=== PATIENT | female | born 1990 | race Caucasian/White ===

== ENCOUNTER 2022-11-02 11:44 | Emergency (ER) | payer MEDICAID, SELFPAY ==
--- NOTE | 2022-11-02 12:27 | ECG_ITS ---
Test Reason : palpitation Blood Pressure : / mmHG Vent. Rate : 068 BPM Atrial Rate : 068 BPM P-R Int : 160 ms QRS Dur : 088 ms QT Int : 400 ms P-R-T Axes : 049 070 033 degrees QTc Int : 425 ms Normal sinus rhythm Normal ECG No previous ECGs available Referred By: Shaq Rodriguez Electronically Signed By:Jake Mcgee
[2022-11-02 12:28] VITALS: BP 127/79; PULSE 74; RESP 16; TEMP 36.6; O2SAT 99; BMI 31.1
--- NOTE | 2022-11-02 12:33 | ED.GENADULT ---
HPI - General Adult General Chief complaint: Arrhythmia/Palpitations <ISAURA Reed - Last Filed: 11/08/22 11:25> Stated complaint: Heart palpitations/SOB <ISAURA Reed - Last Filed: 11/08/22 11:25> Time Seen by Provider: 11/02/22 14:52 <ISAURA Reed - Last Filed: 11/08/22 11:25> Source: patient <ISAURA Dahl - Last Filed: 11/02/22 17:59> Mode of arrival: ambulatory <ISAURA Dahl - Last Filed: 11/02/22 17:59> Limitations: no limitations <ISAURA Dahl Last Filed: 11/02/22 17:59> History of Present Illness HPI narrative: 32 yo female who is currently 7 weeks who presents to the ER for evaluations of 2-3 days of intermittent palpitations associated with SOB, anxiety and dizziness. She reports a history of anxiety and palpitations in the past but not recurrent episodes like it has been. She reports the episodes have been lasting 10-30 minutes, associated with pounding in the chest and throat. She also reports tingling of the hands intermittently. She feels SOB generally lately, not more with exertion or rest. She denies cough, difficulty breathing or chest pains. No leg pain, swelling or redness. She saw her PCP recently and had a normal EKG. Weaned herself off of caffiene. She denies any abdominal pain or vaginal bleeding. She was previously on prozac for anxiety/depression but she reports no improvement with it. <ISAURA Dahl - Last Filed: 11/02/22 17:59> MD complaint: palpitations, SOB, dizziness <ISAURA Dahl - Last Filed: 11/02/22 17:59> Onset (ago): day(s) <ISAURA Dahl - Last Filed: 11/02/22 17:59> Location: chest <ISAURA Dahl Last Filed: 11/02/22 17:59> Radiation: neck <ISAURA Dahl Last Filed: 11/02/22 17:59> Severity: moderate <ISAURA Dahl Last Filed: 11/02/22 17:59> Pain Consistency: intermittent <ISAURA Dahl - Last Filed: 11/02/22 17:59> Relieving factors: none <ISAURA Dahl - Last Filed: 11/02/22 17:59> Exacerbating factors: none <ISAURA Dahl - Last Filed: 11/02/22 17:59> Associated symptoms: shortness of breath <ISAURA Dahl - Last Filed: 11/02/22 17:59> Treatments prior to arrival: none <ISAURA Dahl - Last Filed: 11/02/22 17:59> Related Data Allergies/adverse reactions: Allergies Allergy/AdvReac Type Severity Reaction Status Date / Time No Known Allergies Allergy Verified 11/02/22 11:52 <ISAURA Reed - Last Filed: 11/08/22 11:25> Review of Systems Review of Systems: Yes all other systems are reviewed and are negative <ISAURA Dahl - Last Filed: 11/02/22 17:59> [facility] Social History Social History: Social History Advance Directives: No Advance Directives Information Provided: No <ISAURA Reed - Last Filed: 11/08/22 11:25> Physical Exam ED Vital Signs: Vital Signs - 24 hr 11/02/22 12:28 11/02/22 15:48 Temperature 98 F 98.2 F Pulse Rate 74 72 Respiratory Rate 16 18 Blood Pressure 127/79 124/63 Pulse Oximetry 99 98 Oxygen Delivery Method Room Air Room Air BMI result Body Mass Index 31.1 <ISAURA Reed - Last Filed: 11/08/22 11:25> Vital Signs - 24 hr 11/02/22 12:28 11/02/22 15:48 Temperature 98 F 98.2 F Pulse Rate 74 72 Respiratory Rate 16 18 Blood Pressure 127/79 124/63 Pulse Oximetry 99 98 Oxygen Delivery Method Room Air Room Air BMI result Body Mass Index 31.1 <ISAURA Dahl - Last Filed: 11/02/22 17:59> Appearance: Alert. Oriented X3. No acute distress. Eyes: Pupils equal, round and reactive to light. ENT: Pharynx normal. Neck: Normal inspection. Neck supple. CVS: Normal heart rate and rhythm. Pulses normal. Respiratory: No respiratory distress. Breath sounds normal. Abdomen: Soft and nontender. +BS x4 Skin: Skin warm and dry. Normal skin color. Normal skin turgor. No rashes. Extremities: No lower extremity edema. No calf swelling, redness or tenderness. Neuro: Oriented X 3. No motor deficit. No sensory deficit. <ISAURA Dahl Last Filed: 11/02/22 17:59> Course Course Course Narrative: RME: 32 yold female presents to the ED for heart palpitaions described as pounding with moments of shortness of breath. patient is 7 weeks pregant. patient denies any lower extremity swelling or calf pain, recent long travel, or recent surgery. Lungs and heart sound clear. lower extremities negative for swelling, pitting edema or calf pain. Vital signs stable. Labs, EKG, and chest xray ordered. patient denies vaginal bleeding or abdominal pain. 1:27pm patient refuse chest xray <ISAURA Reed - Last Filed: 11/08/22 11:25> Reevaluation(s) Reevaluation #1: Troponin negative, D-dimer negative, lab work unremarkable. At this time patient is stable for discharge home with plan to follow-up with her PCP and OBGYN. Counseled on management of anxiety and panic attacks. She is going to try to get a therapist. Stable for DC home. <ISAURA Dahl Last Filed: 11/02/22 17:59> Medical Decision Making Differential Diagnosis Differential Diagnoses: The differential diagnosis associated with the presentation includes <ISAURA Dahl - Last Filed: 11/02/22 17:59> Anxiety, panic, pneumonia, viral illness, thyroid disease, electrolyte abnormality, caffeine withdrawal, PE, ACS, pericardial effusion, pericarditis <ISAURA Dahl Last Filed: 11/02/22 17:59> Lab Data MDM Lab Attestation statement: I reviewed the patient's lab results. <ISAURA Dahl Last Filed: 11/02/22 17:59> Lab work unremarkable, troponin negative, D-dimer negative, TSH normal <ISAURA Dahl Last Filed: 11/02/22 17:59> Result Diagrams: 11/02/22 12:49 <ISAURA Reed - Last Filed: 11/08/22 11:25> Labs: Lab Results 11/02/22 11/02/22 11/02/22 Range/Units 12:49 12:49 12:49 WBC 7.9 (4.8-10.8) X10*3/uL RBC 4.61 (4.20-5.50) X10*6/uL Hgb 12.8 (12.0-16.0) g/dl Hct 38.7 (37.0-47.0) % MCV 83.9 (80.0-98.0) fL MCH 27.8 (27.0-33.0) pg MCHC 33.1 (31.0-35.0) g/dl RDW 12.0 (11.0-16.0) % Plt Count 242 (160-400) X10*3/uL MPV 10.1 (9.4-12.3) fL Immature Gran % (Auto) 0.5 H (0.0-0.4) % Neut % (Auto) 73.9 H (45-73) % Lymph % (Auto) 18.1 L (20-40) % [place] % (Auto) 6.4 (2-11) % Eos % (Auto) 0.8 (0-4) % Baso % (Auto) 0.3 (0-2) % Lymph # (Auto) 1.4 (1.2-4.9) X10*3/uL [place] # (Auto) 0.5 (0.1-1.2) X10*3/uL Eos # (Auto) 0.1 (0.0-0.4) X10*3/uL Baso # (Auto) 0.0 (0.0-0.2) X10*3/uL Abs Immat Gran (auto) 0.04 H (0.00-0.03) X10*3/uL Absolute Neuts (auto) 5.8 (2.0-8.3) x10*3/uL Absolute Nucleated RBC 0.000 (0.0-0.012) X10*3/uL Nucleated RBC % (auto) 0.0 (0.0-0.2) /100WBC PT 11.0 (10.0-13.1) SEC INR 1.0 (0.9-1.1) APTT 27.8 (26.0-36.4) SEC D-Dimer High Sensitivty < 150 NG/ML Magnesium 1.9 (1.6-2.6) mg/dL Troponin I High Sens (<3.5-17.0) ng/L B-Natriuretic Peptide (<100) pg/mL TSH 0.89 (0.32-4.0) uIU/mL Beta HCG, Quant mIU/mL Influenza Type A (PCR) (Negative) Influenza Type B (PCR) (Negative) RSV RNA Qual (PCR) (Negative) SARS-CoV-2 RNA (RT-PCR) (Negative) 11/02/22 11/02/22 11/02/22 Range/Units 12:49 12:49 12:49 WBC (4.8-10.8) X10*3/uL RBC (4.20-5.50) X10*6/uL Hgb (12.0-16.0) g/dl Hct (37.0-47.0) % MCV (80.0-98.0) fL MCH (27.0-33.0) pg MCHC (31.0-35.0) g/dl RDW (11.0-16.0) % Plt Count (160-400) X10*3/uL MPV (9.4-12.3) fL Immature Gran % (Auto) (0.0-0.4) % Neut % (Auto) (45-73) % Lymph % (Auto) (20-40) % [place] % (Auto) (2-11) % Eos % (Auto) (0-4) % Baso % (Auto) (0-2) % Lymph # (Auto) (1.2-4.9) X10*3/uL [place] # (Auto) (0.1-1.2) X10*3/uL Eos # (Auto) (0.0-0.4) X10*3/uL Baso # (Auto) (0.0-0.2) X10*3/uL Abs Immat Gran (auto) (0.00-0.03) X10*3/uL Absolute Neuts (auto) (2.0-8.3) x10*3/uL Absolute Nucleated RBC (0.0-0.012) X10*3/uL Nucleated RBC % (auto) (0.0-0.2) /100WBC PT (10.0-13.1) SEC INR (0.9-1.1) APTT (26.0-36.4) SEC D-Dimer High Sensitivty NG/ML Magnesium (1.6-2.6) mg/dL Troponin I High Sens < 3.5 (<3.5-17.0) ng/L B-Natriuretic Peptide 38 (<100) pg/mL TSH (0.32-4.0) uIU/mL Beta HCG, Quant 53713 mIU/mL Influenza Type A (PCR) (Negative) Influenza Type B (PCR) (Negative) RSV RNA Qual (PCR) (Negative) SARS-CoV-2 RNA (RT-PCR) (Negative) 11/02/22 Range/Units 12:49 WBC (4.8-10.8) X10*3/uL RBC (4.20-5.50) X10*6/uL Hgb (12.0-16.0) g/dl Hct (37.0-47.0) % MCV (80.0-98.0) fL MCH (27.0-33.0) pg MCHC (31.0-35.0) g/dl RDW (11.0-16.0) % Plt Count (160-400) X10*3/uL MPV (9.4-12.3) fL Immature Gran % (Auto) (0.0-0.4) % Neut % (Auto) (45-73) % Lymph % (Auto) (20-40) % [place] % (Auto) (2-11) % Eos % (Auto) (0-4) % Baso % (Auto) (0-2) % Lymph # (Auto) (1.2-4.9) X10*3/uL [place] # (Auto) (0.1-1.2) X10*3/uL Eos # (Auto) (0.0-0.4) X10*3/uL Baso # (Auto) (0.0-0.2) X10*3/uL Abs Immat Gran (auto) (0.00-0.03) X10*3/uL Absolute Neuts (auto) (2.0-8.3) x10*3/uL Absolute Nucleated RBC (0.0-0.012) X10*3/uL Nucleated RBC % (auto) (0.0-0.2) /100WBC PT (10.0-13.1) SEC INR (0.9-1.1) APTT (26.0-36.4) SEC D-Dimer High Sensitivty NG/ML Magnesium (1.6-2.6) mg/dL Troponin I High Sens (<3.5-17.0) ng/L B-Natriuretic Peptide (<100) pg/mL TSH (0.32-4.0) uIU/mL Beta HCG, Quant mIU/mL Influenza Type A (PCR) NEGATIVE (Negative) Influenza Type B (PCR) NEGATIVE (Negative) RSV RNA Qual (PCR) NEGATIVE (Negative) SARS-CoV-2 RNA (RT-PCR) NEGATIVE (Negative) <ISAURA Reed - Last Filed: 11/08/22 11:25> Lab Results 11/02/22 11/02/22 11/02/22 Range/Units 12:49 12:49 12:49 WBC 7.9 (4.8-10.8) X10*3/uL RBC 4.61 (4.20-5.50) X10*6/uL Hgb 12.8 (12.0-16.0) g/dl Hct 38.7 (37.0-47.0) % MCV 83.9 (80.0-98.0) fL MCH 27.8 (27.0-33.0) pg MCHC 33.1 (31.0-35.0) g/dl RDW 12.0 (11.0-16.0) % Plt Count 242 (160-400) X10*3/uL MPV 10.1 (9.4-12.3) fL Immature Gran % (Auto) 0.5 H (0.0-0.4) % Neut % (Auto) 73.9 H (45-73) % Lymph % (Auto) 18.1 L (20-40) % [place] % (Auto) 6.4 (2-11) % Eos % (Auto) 0.8 (0-4) % Baso % (Auto) 0.3 (0-2) % Lymph # (Auto) 1.4 (1.2-4.9) X10*3/uL [place] # (Auto) 0.5 (0.1-1.2) X10*3/uL Eos # (Auto) 0.1 (0.0-0.4) X10*3/uL Baso # (Auto) 0.0 (0.0-0.2) X10*3/uL Abs Immat Gran (auto) 0.04 H (0.00-0.03) X10*3/uL Absolute Neuts (auto) 5.8 (2.0-8.3) x10*3/uL Absolute Nucleated RBC 0.000 (0.0-0.012) X10*3/uL Nucleated RBC % (auto) 0.0 (0.0-0.2) /100WBC PT 11.0 (10.0-13.1) SEC INR 1.0 (0.9-1.1) APTT 27.8 (26.0-36.4) SEC D-Dimer High Sensitivty < 150 NG/ML Magnesium 1.9 (1.6-2.6) mg/dL Troponin I High Sens (<3.5-17.0) ng/L B-Natriuretic Peptide (<100) pg/mL TSH 0.89 (0.32-4.0) uIU/mL Beta HCG, Quant mIU/mL Influenza Type A (PCR) (Negative) Influenza Type B (PCR) (Negative) RSV RNA Qual (PCR) (Negative) SARS-CoV-2 RNA (RT-PCR) (Negative) 11/02/22 11/02/22 11/02/22 Range/Units 12:49 12:49 12:49 WBC (4.8-10.8) X10*3/uL RBC (4.20-5.50) X10*6/uL Hgb (12.0-16.0) g/dl Hct (37.0-47.0) % MCV (80.0-98.0) fL MCH (27.0-33.0) pg MCHC (31.0-35.0) g/dl RDW (11.0-16.0) % Plt Count (160-400) X10*3/uL MPV (9.4-12.3) fL Immature Gran % (Auto) (0.0-0.4) % Neut % (Auto) (45-73) % Lymph % (Auto) (20-40) % [place] % (Auto) (2-11) % Eos % (Auto) (0-4) % Baso % (Auto) (0-2) % Lymph # (Auto) (1.2-4.9) X10*3/uL [place] # (Auto) (0.1-1.2) X10*3/uL Eos # (Auto) (0.0-0.4) X10*3/uL Baso # (Auto) (0.0-0.2) X10*3/uL Abs Immat Gran (auto) (0.00-0.03) X10*3/uL Absolute Neuts (auto) (2.0-8.3) x10*3/uL Absolute Nucleated RBC (0.0-0.012) X10*3/uL Nucleated RBC % (auto) (0.0-0.2) /100WBC PT (10.0-13.1) SEC INR (0.9-1.1) APTT (26.0-36.4) SEC D-Dimer High Sensitivty NG/ML Magnesium (1.6-2.6) mg/dL Troponin I High Sens < 3.5 (<3.5-17.0) ng/L B-Natriuretic Peptide 38 (<100) pg/mL TSH (0.32-4.0) uIU/mL Beta HCG, Quant 55924 mIU/mL Influenza Type A (PCR) (Negative) Influenza Type B (PCR) (Negative) RSV RNA Qual (PCR) (Negative) SARS-CoV-2 RNA (RT-PCR) (Negative) 11/02/22 Range/Units 12:49 WBC (4.8-10.8) X10*3/uL RBC (4.20-5.50) X10*6/uL Hgb (12.0-16.0) g/dl Hct (37.0-47.0) % MCV (80.0-98.0) fL MCH (27.0-33.0) pg MCHC (31.0-35.0) g/dl RDW (11.0-16.0) % Plt Count (160-400) X10*3/uL MPV (9.4-12.3) fL Immature Gran % (Auto) (0.0-0.4) % Neut % (Auto) (45-73) % Lymph % (Auto) (20-40) % [place] % (Auto) (2-11) % Eos % (Auto) (0-4) % Baso % (Auto) (0-2) % Lymph # (Auto) (1.2-4.9) X10*3/uL [place] # (Auto) (0.1-1.2) X10*3/uL Eos # (Auto) (0.0-0.4) X10*3/uL Baso # (Auto) (0.0-0.2) X10*3/uL Abs Immat Gran (auto) (0.00-0.03) X10*3/uL Absolute Neuts (auto) (2.0-8.3) x10*3/uL Absolute Nucleated RBC (0.0-0.012) X10*3/uL Nucleated RBC % (auto) (0.0-0.2) /100WBC PT (10.0-13.1) SEC INR (0.9-1.1) APTT (26.0-36.4) SEC D-Dimer High Sensitivty NG/ML Magnesium (1.6-2.6) mg/dL Troponin I High Sens (<3.5-17.0) ng/L B-Natriuretic Peptide (<100) pg/mL TSH (0.32-4.0) uIU/mL Beta HCG, Quant mIU/mL Influenza Type A (PCR) NEGATIVE (Negative) Influenza Type B (PCR) NEGATIVE (Negative) RSV RNA Qual (PCR) NEGATIVE (Negative) SARS-CoV-2 RNA (RT-PCR) NEGATIVE (Negative) <ISAURA Dahl - Last Filed: 11/02/22 17:59> Independent Interpretation I performed an independent interpretation of an: EKG <ISAURA Dahl - Last Filed: 11/02/22 17:59> Interpretation: EKG done at 12:38 showing normal sinus rhythm, ventricular rate 68 beats per minute, normal [place] interval, normal QTC, no ST segment elevations or depressions. <ISAURA Dahl - Last Filed: 11/02/22 17:59> Chronic Conditions Patient?s care impacted by: Other (anxiety) <ISAURA Dahl - Last Filed: 11/02/22 17:59> Critical Care Time Critical Care Time Critical Care Time: No <ISAURA Dahl - Last Filed: 11/02/22 17:59> Discharge Plan Discharge Clinical Impression: Anxiety, Palpitations <ISAURA Reed - Last Filed: 11/08/22 11:25> Patient Disposition: Home, Self-Care <ISAURA Reed - Last Filed: 11/08/22 11:25> Instructions: Heart Palpitations (DC), Anxiety (ED) <ISAURA Reed - Last Filed: 11/08/22 11:25> Additional Instructions: Your workup today was unremarkable. Recommend following up with your primary care doctor and your OBGYN. If you develop new or worsening symptoms call 911 or come back to the ER for further evaluation. <ISAURA Reed - Last Filed: 11/08/22 11:25> Interventions: ED Discharge Assessment Last Done: 11/02/22 15:58 <ISAURA Reed - Last Filed: 11/08/22 11:25> Discharge Date/Time: 11/02/22 15:58 <ISAURA Reed - Last Filed: 11/08/22 11:25>
[2022-11-02 12:54] LABS: MANUAL DIFF FLAG NO
[2022-11-02 12:55] LABS: Basophils Percent Auto 0.3 % (0-2); Eosinophils Absolute Auto 0.1 X10*3/uL (0.0-0.4); Eosinophils Percent Auto 0.8 % (0-4); Hematocrit 38.7 % (37.0-47.0); Hemoglobin 12.8 g/dl (12.0-16.0); Imm Gran Abs Auto 0.04 X10*3/uL (0.00-0.03); Imm Gran Pct Auto 0.5 % (0.0-0.4); Lymphocytes Absolute Auto 1.4 X10*3/uL (1.2-4.9); Lymphocytes Percent Auto 18.1 % (20-40); Mean Corpuscular HGB Conc 33.1 g/dl (31.0-35.0); Mean Corpuscular Hemoglobin 27.8 pg (27.0-33.0); Mean Corpuscular Volume 83.9 fL (80.0-98.0); Mean Platelet Volume 10.1 fL (9.4-12.3); Monocytes Absolute Auto 0.5 X10*3/uL (0.1-1.2); Monocytes Percent Auto 6.4 % (2-11); Neutrophils Absolute Auto 5.8 x10*3/uL (2.0-8.3); Neutrophils Percent Auto 73.9 % (45-73); Platelet Count 242 X10*3/uL (160-400); Red Blood Count 4.61 X10*6/uL (4.20-5.50); White Blood Count 7.9 X10*3/uL (4.8-10.8)
[2022-11-02 13:03] LABS: Partial Thromboplastin Time 27.8 SEC (26.0-36.4)
[2022-11-02 13:31] LABS: B Type Natriuretic Peptide 38 pg/mL (<100); Influenza A PCR NEGATIVE (Negative); Influenza B PCR NEGATIVE (Negative); Resp Syncy Virus RNA Qual PCR NEGATIVE (Negative); SARS COV2 PCR INHOUSE NEGATIVE (Negative)
[2022-11-02 13:35] LABS: Magnesium 1.9 mg/dL (1.6-2.6)
[2022-11-02 13:36] LABS: Troponin-I High Sensitivity < 3.5 ng/L (<3.5-17.0)
[2022-11-02 13:45] LABS: TSH reflex Free T4 0.89 uIU/mL (0.32-4.0)
[2022-11-02 15:30] LABS: D Dimer High Sensitivity < 150 NG/ML
[2022-11-02 15:48] VITALS: BP 124/63; PULSE 72; RESP 18; TEMP 36.8; O2SAT 98
== END 2022-11-02 15:58 | disposition home or self-care (01) ==
PROVIDERS: Physician Assistant; Emergency Provider Emergency Medicine; PCP Nurse Practitioner Adult Health
DX: O99.341 Other mental disorders complicating pregnancy, first trimester (principal); F41.9 Anxiety disorder, unspecified; O26.891 Other specified pregnancy related conditions, first trimester; R00.2 Palpitations; R06.02 Shortness of breath; Z3A.01 Less than 8 weeks gestation of pregnancy; Z20.822 Contact with and (suspected) exposure to COVID-19; Z20.828 Contact with and (suspected) exposure to other viral communicable diseases
CPT/HCPCS: 0241U; 36415; 83735; 83880; 84443; 84484; 84702; 85025; 85379; 85610; 85730; 93005; 99283; 99284

== ENCOUNTER 2025-06-09 04:14 | Emergency (ER) | payer OTHER, SELFPAY ==
[2025-06-09 04:17] VITALS: BP 144/67; PULSE 70; RESP 18; TEMP 36.3; O2SAT 99; BMI 29.8
--- NOTE | 2025-06-09 04:51 | PC.NURSE ---
pt left without being seen, did not want to wait for provider.
--- OUTSIDE RECORDS SUMMARY | 2025-06-09 04:52 | XMS_ITS | Clinical Summary ---
Author Organization 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 Active Active Problems Problem Noted Date Diagnosed Date Bilateral shoulder pain 12/15/2017 Family History Medical History Relation Comments No Known Problems Brother No Known Problems Father No Known Problems Maternal Aunt No Known Problems Maternal Grandfather No Known Problems Maternal Grandmother No Known Problems Maternal Uncle No Known Problems Mother No Known Problems Paternal Aunt No Known Problems Paternal Grandfather No Known Problems Paternal Grandmother No Known Problems Paternal Uncle No Known Problems Sister Cancer Unspecified Infl. arthritis Unspecified Clotting disorder Neg Hx Collagen disease Neg Hx Depression Neg Hx Diabetes Neg Hx Dislocations Neg Hx Gout Neg Hx Osteoporosis Neg Hx Scoliosis Neg Hx Relation Status Comments Brother Father Maternal Aunt Maternal Grandfather Maternal Grandmother Maternal Uncle Mother Paternal Aunt Paternal Grandfather Paternal Grandmother Paternal Uncle Sister Unspecified Social History Tobacco Use Types Packs/Day Years Used Date Smoking Tobacco: Smoker, Current Status Unknown Cigarettes Smokeless Tobacco: Never Alcohol Use Standard Drinks/Week Comments No 0 (1 standard drink = 0.6 oz pur e alcohol) Education Answer Date Recorded Are you interested in more education? Not on ashley e 01/28/2023 Are you concerned about learning? Not on file 01/28/2023 No 01/28/2023 No 01/28/2023 Digital Access Answer Date Recorded No 03/01/2023 No 03/01/2023 No 03/01/2023 Reliable internet access at home? Not on file 03/01/2023 Device with a working camera? Not on file Comments Unknown Sex and Gender Information Value Date Recorded Sex Assigned at Not on file Legal Sex Female 8:41 AM EST Gender Identity Not on file Sexual Orientation Not on file Last Filed Vital Signs Vital Sign Reading Time Taken Comments Blood Pressure 129/77 12/22/2017 8:36 AM EDT Pulse 76 12/22/2017 8:36 AM EDT Temperature - - Respiratory Rate - - Oxygen Saturation - - Inhaled Oxygen Concentration - - Weight 82.1 kg (181 lb) 12/22/2017 8:36 AM EDT Height 174 cm (5' 8.5 ) 12/22/2017 8:36 AM EDT Body Mass Index 27.12 12/22/2017 8:36 AM EDT Plan of Treatment Health Maintenance Due Date Last Done Comments Adult Td,Tdap Booster 1988 DEPRESSION SCREENING 2000 SMOKING Hx and SMOKELESS TOB ACCO SCREENING 2001 HEPATITIS C SCREENING 2006 HIV ONE-TIME SCREENING (18-6 5 YEARS) 2006 PNEUMOCOCCAL VACCINES (0-49 years) (1 of 2 - PCV) 2007 PAP SMEAR 2009 INFLUENZA VACCINE (#1) 2025 07/31/2019 COVID-19 VACCINE ( - 2023-2 5 season) 2025 HEPATITIS A VACCINES Aged Out No long er eligible based on patient's age to complete this topic HIB VACCINES Aged Out No longer eligi ble based on patient's age to complete this topic MENINGOCOCCAL VACCINES (ACWY) Aged Out No longer eligible based on patient's age to complete this topic MENINGOCOCCAL VACCINES (B) Aged Out N o longer eligible based on patient's age to complete this topic Medical Devices Not on file Insurance [facility] [employer] PARTIAL Member Subscriber Plan / Payer (Ef fective 2022-Present) Name:Erika POTTER Relation to Subscriber:Self Name:Erika POTTER Payer ID:Not on file Group ID:Not on file Type:Medicaid Address: [address] [employer] PART[employer] Member Subscriber Plan / Payer (Ef fective 2022-Present) Name:Erika POTTER Relation to Subscriber:Self Name:Erika POTTER Payer ID:Not on file Group ID:Not on file Type:Medicaid Address: [address] [employer] Member Subscriber Plan / Payer (Ef fective 2022-Present) Name:Erika POTTER Relation to Subscriber:Self Name:Erika POTTER Payer ID:Not on file Group ID:Not on file Type:Medicaid Address: [address] [employer] PART[employer] Member Subscriber Plan / Payer (Ef fective 2022-Present) Name:Erika POTTER Relation to Subscriber:Self Name:Erika POTTER Payer ID:Not on file Group ID:Not on file Type:Medicaid Address: [address] [employer] Member Subscriber Plan / Payer (Ef fective 2022-Present) Name:Erika POTTER Relation to Subscriber:Self Name:Erika POTTER Payer ID:Not on file Group ID:Not on file Type:Medicaid Address: [address] [employer] PART[employer] Member Subscriber Plan / Payer ( fective 2022-Present) Name:Erika POTTER Relation to Subscriber:Self Name:Erika POTTER Payer ID:Not on file Group ID:Not on file Type:Medicaid Address: [address] [place] [id number] Care Teams Lens Fabricating Machine Tender Relationship Specialty Start Date End Date Pcp, Unknown PCP - General 09/02/22 Additional Source Comments The information contained in this document represents components of the legal health record. It is not the complete legal health record.[facility]
== END 2025-06-09 04:52 | disposition left against medical advice (07) ==
PROVIDERS: Emergency Provider Emergency Medicine; PCP Internal Medicine
DX: R19.7 Diarrhea, unspecified (principal)
CPT/HCPCS: 99281